=== PATIENT | female | born 1995 | race American Indian/Alaskan Native ===

== ENCOUNTER 2019-06-17 19:22 | Emergency (ER) | payer SELFPAY ==
--- NOTE | 2019-06-17 19:40 | Emergency Department Report ---
Blank Doc - Documentation Documentation: 24-year-old female that presents with right flank pain. This initial assessment/diagnostic orders/clinical plan/treatment(s) is/are subject to change based on patient's health status, clinical progression and re- assessment by fellow clinical providers in the ED. Further treatment and workup at subsequent clinical providers discretion. Patient/guardians urged not to elope from the ED as their condition may be serious if not clinically assessed and managed. Initial orders include: 1- Patient sent to [facility] for further evaluation and treatment 2- UA
[2019-06-17 19:42] VITALS: BP 109/63
[2019-06-17 20:36] LABS: Amorphous Crystals,Urine Few; Bilirubin,Urine NEG (Negative); Blood,Urine SM (Negative); Color,Urine Yellow (Yellow); Mucus,Urine FEW /HPF; Protein,Urine <15 mg/dL mg/dL (Negative)
[2019-06-17 20:53] LABS: HCG Qualitative,Urine Negative (Negative)
[2019-06-17] MEDS ORDERED: ROCEPHIN IM STA (22:07)
[2019-06-17] MEDS ORDERED: PERCOCET 5/325 PO STA (22:07)
[2019-06-17] MEDS ORDERED: XYLOCAINE 1% MPF 5 mL INFILTRATI ONE (22:07)
== END 2019-06-18 00:33 | disposition home or self-care (01) ==
LOC: ED 19:22
DX: R10.9 Unspecified abdominal pain (principal)
CPT/HCPCS: 81001; 81025; 87086; 96372; 99283; J0696